=== PATIENT | female | born 1970 | race Caucasian/White ===

== ENCOUNTER 2019-01-03 19:12 | Emergency (ER) | payer OTHER ==
[2019-01-03 19:18] VITALS: BP 151/86; PULSE 66; RESP 16; TEMP 97.9
[2019-01-03] MEDS ORDERED: KETOROLAC 60 MG/2 ML VIAL IM STA (19:27)
--- NOTE | 2019-01-03 20:01 | ED ---
General Adult HPI - General Chief complaint: Extremity Injury, Upper Stated complaint: IHS Lt Arm Injury Time Seen by Provider: 01/03/19 19:25 Source: patient, RN notes reviewed, old records reviewed Mode of arrival: ambulatory Limitations: no limitations - History of Present Illness Initial comments: 48-year-old female patient no pertinent past medical history presents to ED after sustaining a slip and fall on ice. Patient reports that she was shoveling snow, when she slipped and fell onto her left arm. Patient primary complaint is left wrist pain. Patient fell on her back as well has a very mild amount of thoracic and lumbar back pain. Patient denies any trauma to head or neck. Patient denies a loss of consciousness. Patient denies any use of blood thinners. Pt denies saddle anesthesia, bowel or bladder incontinence, lower extremity weakness, paresthesias. Patient denies all other complaints. Systemic: Pt denies fatigue, myalgia, fever/chills, rash. Pt denies weakness, night sweats, weight loss. Neuro: Pt denies headache, visual disturbances, syncope or pre-syncope. HEENT: Pt denies ocular discharge or irritation, otalgia, rhinorrhea, pharyngitis or notable lymphadenopathy. Cardiopulmonary: Pt denies chest pain, SOB, heart palpitations, dyspnea on exertion. Abdominal/GI: Pt denies abdominal pain, n/v/d. : Pt denies dysuria, burning w/ urination, frequency/urgency. Denies new onset urinary or bowel incontinence. MSK: Pt denies myalgia, loss of strength or function in extremities. Neuro: Pt denies new onset weakness, paresthesias. - Related Data Previous Rx's Medication Instructions Recorded Ibuprofen [Motrin] 600 mg PO Q6HR PRN #40 day 01/03/19 Allergies Allergy/AdvReac Type Severity Reaction Status Date / Time dust Allergy Wheezing Uncoded 01/03/19 19:18 seasonal Allergy Wheezing Uncoded 01/03/19 19:18 Review of Systems ROS Statement: Those systems with pertinent positive or pertinent negative responses have been documented in the HPI. ROS Other: All systems not noted in ROS Statement are negative. Past Medical History Past Medical History: Asthma History of Any Multi-Drug Resistant Organisms: None Reported Past Surgical History: Tubal Ligation, Uterine Ablation Additional Past Surgical History / Comment(s): deviated septum. Past Psychological History: No Psychological Hx Reported Smoking Status: Former smoker Past Alcohol Use History: None Reported Past Drug Use History: None Reported General Exam - General Exam Comments Initial Comments: Constitutional: NAD, AOX3, Pt has pleasant affect. HEENT: NC/AT, trachea midline, neck supple, no lymphadenopathy. Posterior pharynx non erythematous, without exudates. External ears appear normal, without discharge. Mucous membranes moist. Eyes PERRLA, EOM intact. There is no scleral icterus. No pallor noted. Cardiopulmonary: RRR, no murmurs, rubs or gallops, no JVD noted. Lungs CTAB in anterior and posterior tapia. No peripheral edema. Abdominal exam: Abdomen soft and non-distended. Abdomen non-tender to palpation in all 4 quadrants. Bowel sounds active in LLQ. No hepatosplenomegaly. No ecchymosis Neuro: CN II-XII grossly intact. No nuchal rigidity. MSK: L dorsal aspect of wrist mildly tender to palpation midline. No snuffbox tenderness. Proximal L ulna mildly tender to palpation. No ecchymosis. Full acitve ROM of Left upper extremity. Neurovascularly intact. No cervical spinal tenderness. Mild amount of para thoracic and lumbar tenderness. 5/5 strength in lower extremities. No posterior calf tenderness bilaterally, homans sign negative bilaterally. Posterior tibialis and radial pulse +2 bilaterally. Sensation intact in upper and lower extremities. Full active ROM in upper and lower extremities. Limitations: no limitations Course Vital Signs 01/03/19 19:14 Temperature 97.9 F Pulse Rate 66 Respiratory 16 Rate Blood Pressure 151/86 O2 Sat by Pulse 100 Oximetry Medical Decision Making - Medical Decision Making 48-year-old female patient no pertinent past medical history presents to ED after sustaining a slip and fall on ice. Patient reports that she was shoveling snow, when she slipped and fell onto her left arm. Patient primary complaint is left wrist pain. Patient fell on her back as well has a very mild amount of thoracic and lumbar back pain. Patient denies any trauma to head or neck. Patient denies a loss of consciousness. Patient denies any use of blood thinners. Patient denies all other complaints. Patient will signs stable, afebrile. Physical exam displayed: L dorsal aspect of wrist mildly tender to palpation midline. No snuffbox tenderness. Proximal L ulna mildly tender to palpation. No ecchymosis. Full acitve ROM of Left upper extremity. Neurovascularly intact. No cervical spinal tenderness. Mild amount of para thoracic and lumbar tenderness. 5/5 strength in lower extremities. No posterior calf tenderness bilaterally, homans sign negative bilaterally. Posterior tibialis and radial pulse +2 bilaterally. Sensation intact in upper and lower extremities. Full active ROM in upper and lower extremities. Imaging modalities revealed no acute process and, thoracic and lumbar plain film. Left hand, left forearm. These findings were explained to patient at length, patient was understanding. Patient offered an Blaine wrap for stability left wrist , patient declined. Patient use Tylenol or Motrin for pain. Patient pain improves in ED with Toradol administration. Patient to follow up with primary care provider in 1-2 days. Patient provided orthopedic consult symptoms continue. Patient to return to ED if descends symptoms develop or condition worsens. Case discussed in depth with Dr. Farias. Disposition Clinical Impression: Fall, Sprain of wrist, left Disposition: HOME SELF-CARE Condition: Stable Instructions (If sedation given, give patient instructions): Fall Prevention ( ED), Wrist Sprain (ED) Additional Instructions: Patient to adhere to previously discussed treatment plan and will take medication(s) as directed. Patient to follow up with PCP in 1-2 days. Patient to return to ED if symptoms do not improve. Please follow-up with primary care tomorrow. Please follow up with orthopedic consult if symptoms persist or worsen. Prescriptions: Ibuprofen [Motrin] 600 mg PO Q6HR PRN #40 day PRN Reason: Pain Is patient prescribed a controlled substance at d/c from ED?: No Referrals: Fabian Plaza MD [Primary Care Provider] - 1-2 days
--- NOTE | 2019-01-03 20:32 | XR ---
EXAMINATION TYPE: XR lumbar spine 2 or 3V DATE OF EXAM: 01/03/2019 COMPARISON: 09/19/2016 HISTORY: Low back pain TECHNIQUE: 3 views FINDINGS: Lumbar vertebra have normal spacing and alignment. Posterior elements are intact. Sacroilia c joints are normal. There is no compression fracture. IMPRESSION: Negative lumbar spine exam. No change compared to old exam.
--- NOTE | 2019-01-03 20:33 | XR ---
EXAMINATION TYPE: XR hand complete LT DATE OF EXAM: 01/03/2019 COMPARISON: NONE HISTORY: Pain TECHNIQUE: 3 views FINDINGS: Metacarpals are intact. I see no fracture nor dislocation. Joint spaces are normal. There a re no erosions. IMPRESSION: Negative left hand exam.
--- NOTE | 2019-01-03 20:34 | XR ---
EXAMINATION TYPE: XR forearm LT DATE OF EXAM: 01/03/2019 COMPARISON: NONE HISTORY: Arm pain TECHNIQUE: 2 views FINDINGS: Radius and ulna appear intact. I see no fracture nor dislocation. Soft tissues appear sarah l. IMPRESSION: Negative left forearm exam.
--- NOTE | 2019-01-03 20:37 | XR ---
EXAMINATION TYPE: XR thoracic spine complete DATE OF EXAM: 01/03/2019 COMPARISON: 09/19/2016 HISTORY: Back pain TECHNIQUE: 3 views FINDINGS: Thoracic vertebra have normal alignment. Posterior elements are intact. There is no evidenc e of a compression fracture. There is hypertrophic lateral osteophyte on the left side at T8-9. IMPRESSION: Negative thoracic spine exam. No change.
== END 2019-01-03 21:30 | disposition home or self-care (01) ==
LOC: EC 19:12
DX: S63.502A Unspecified sprain of left wrist, initial encounter (principal); Z87.891 Personal history of nicotine dependence; Z91.09 Other allergy status, other than to drugs and biological substances; W00.0XXA Fall on same level due to ice and snow, initial encounter; Y93.H1 Activity, digging, shoveling and raking; Y92.69 Other specified industrial and construction area as the place of occurrence of the external cause; Y99.0 Civilian activity done for income or pay
CPT/HCPCS: 99284; 96372; 72072; 72100; 73090; 73130; J1885

== ENCOUNTER → 2019-01-06 | Outpatient (CLI) | payer BC ==
--- NOTE | 2019-01-08 09:37 | MM ---
Reason for exam: screening (asymptomatic). Last mammogram was performed 3 years and 3 months ago. History: Patient is postmenopausal and is nulliparous. Physical Findings: A clinical breast exam by your physician is recommended on an annual basis and results should be correlated with mammographic findings. MG Screening Mammo w CAD Bilateral CC and MLO view(s) were taken. Prior study comparison: October 20, 2015, mammogram, performed at [facility]. October 14, 2014, mammogram, performed at [facility]. September 10, 2013, mammogram, performed at [facility]. The breast tissue is heterogeneously dense. This may lower the sensitivity of mammography. New lateral right breast asymmetry 5cm from nipple. ASSESSMENT: Incomplete: need additional imaging evaluation, BI-RAD 0 RECOMMENDATION: Special view mammogram of the right breast. If lesion persists on supplemental views, image directed ultrasound is recommended. [facility] will attempt to contact patient to return for supplemental views and ultrasound if indicated.
== END | disposition home or self-care (01) ==
LOC: RADMAMWWP 13:06
PROVIDERS: ATTEND Family Medicine
DX: Z12.31 Encounter for screening mammogram for malignant neoplasm of breast (principal)
CPT/HCPCS: 77067

== ENCOUNTER → 2019-01-12 | Outpatient (CLI) | payer OTHER ==
--- NOTE | 2019-01-12 14:27 | XR ---
EXAMINATION TYPE: XR wrist complete LT DATE OF EXAM: 01/12/2019 COMPARISON: NONE HISTORY: Pain TECHNIQUE: Four views submitted. FINDINGS: The osseous structures are intact. The joint spaces are preserved and there is no acute fracture or dislocation. Well-corticated densities adjacent to the ulnar styloid noted. Finding likely on the ba sis of remote trauma. IMPRESSION: 1. No definite acute fracture or dislocation if symptoms persist, follow-up study in 7 to 10 days wo uld be suggested
== END | disposition home or self-care (01) ==
LOC: RADXRMAIN 13:49
PROVIDERS: ATTEND Emergency Medicine
DX: S60.212D Contusion of left wrist, subsequent encounter (principal)

== ENCOUNTER → 2019-01-26 | Outpatient (CLI) | payer BC ==
--- NOTE | 2019-01-26 10:55 | MM ---
Reason for exam: additional evaluation requested from abnormal screening. Last mammogram was performed 1 month ago. History: Patient is postmenopausal and is nulliparous. Physical Findings: Nurse did not find any significant physical abnormalities on exam. MG Work Up Mamm w CAD RT Spot compression CC and LM view(s) were taken of the right breast. Prior study comparison: January 06, 2019, bilateral MG screening mammo w CAD. October 20, 2015, mammogram, performed at [facility]. The breast tissue is extremely dense which could obscure a lesion on mammography. No significant new findings when compared with previous films. These results were verbally communicated with the patient and result sheet given to the patient on 01/26/19. ASSESSMENT: Probably benign, BI-RAD 3 RECOMMENDATION: Follow-up diagnostic mammogram of the right breast in 6 months.
== END | disposition home or self-care (01) ==
LOC: RADMAMWWP 10:21
PROVIDERS: ATTEND Family Medicine
DX: R92.8 Other abnormal and inconclusive findings on diagnostic imaging of breast (principal)
CPT/HCPCS: 77065

== ENCOUNTER → 2020-09-27 | Outpatient (CLI) | payer BC ==
--- NOTE | 2020-09-27 23:42 | MR ---
EXAMINATION TYPE: MR wrist LT wo con DATE OF EXAM: 09/27/2020 COMPARISON: None HISTORY: LT WRIST PAIN Multiplanar multiecho imaging of the left wrist was performed without contrast. There is transverse fracture across the distal radial metaphysis. Fracture line also extends to the a rticular surface at the radiocarpal joint. Fracture is 6 mm from the radiocarpal joint. There is venu a at the fracture site. The distal ulna is intact. The carpal bones are intact. There is 3 mm degenerative cyst in the lunate. Scaphoid is intact. There is a mild wrist joint effusion. I see no evidence of carpal bone fracture. The visualized metacarpal s are intact. There is no evidence of soft tissue mass. IMPRESSION: Nondisplaced transverse intra-articular fracture distal radius. Small wrist joint effusion.
== END | disposition home or self-care (01) ==
LOC: RADMRIMAIN 16:57
PROVIDERS: ATTEND Family Medicine
DX: S52.572A Other intraarticular fracture of lower end of left radius, initial encounter for closed fracture (principal)

== ENCOUNTER → 2023-11-04 | Outpatient (CLI) | payer OTHER ==
--- NOTE | 2023-11-04 20:03 | US ---
EXAMINATION TYPE: US venous doppler duplex LE DATE OF EXAM: 11/04/2023 5:10 PM COMPARISON: NONE CLINICAL INDICATION: Female, 53 years old with history of M79.604, M79.605; Fell 1 week ago; Pain in BL LE SIDE PERFORMED: Bilateral TECHNIQUE: The lower extremity deep venous system is examined utilizing real time linear array sonog marcus with graded compression, doppler sonography and color-flow sonography. VESSELS IMAGED: Common Femoral Vein Deep Femoral Vein Greater Saphenous Vein * Femoral Vein Popliteal Vein Small Saphenous Vein * Proximal Calf Veins (* superficial vessels) Imaged veins fill with normal color signal, show the expected waveforms and compressibility. No evide nce of intraluminal filling defect. Right Leg: Negative for DVT Left Leg: Negative for DVT IMPRESSION: No evidence of DVT in either lower extremity.
== END | disposition home or self-care (01) ==
LOC: RADUSWWP 16:52
PROVIDERS: ATTEND Emergency Medicine
DX: M79.604 Pain in right leg (principal); M79.605 Pain in left leg
CPT/HCPCS: 93970

== ENCOUNTER → 2023-11-04 | Outpatient (CLI) | payer OTHER ==
--- NOTE | 2023-11-04 20:08 | XR ---
EXAMINATION TYPE: XR knee limited bilateral DATE OF EXAM: 11/04/2023 5:41 PM CLINICAL INDICATION:Female, 53 years old with history of S80.01XA,S80.002XA,M79.604,M79.605; [facility]IN [facility] COMPARISON: None. TECHNIQUE: XR knee limited bilateral; examined in Frontal, lateral and oblique projections. FINDINGS: No evidence of any acute osseous pathology, soft tissue swelling, or joint effusion is no alexandre. Mild osteophyte formation involving the femoral condyles, tibial plateau and patella. Mild join t space narrowing. IMPRESSION: 1. No acute osseous pathology. 2. Mild osteoarthritic changes bilaterally.
== END | disposition home or self-care (01) ==
LOC: RADXRMAIN 17:20
PROVIDERS: ATTEND Emergency Medicine
DX: S80.02XA Contusion of left knee, initial encounter (principal); S80.01XA Contusion of right knee, initial encounter; M17.0 Bilateral primary osteoarthritis of knee

== ENCOUNTER → 2024-04-27 | Outpatient (CLI) | payer BC ==
--- NOTE | 2024-04-28 13:46 | MM ---
Reason for Exam: Screening (asymptomatic). Last mammogram was performed 5 year(s) and 3 month(s) ago. Patient History: Menarche at age 13. Patient has no children. Postmenopausal. Risk Values: Zoraida 5 year model risk: 1.2%. NCI Lifetime model risk: 8.3%. Prior Study Comparison: 10/20/2015 Screening Mammogram, [facility]. 01/06/2019 Bilateral Screening Mammogram, [facility]. 01/26/2019 Right Diagnostic Mammogram, [facility]. Tissue Density: There are scattered areas of fibroglandular density. Findings: Analyzed By CAD. Right breast: There is no suspicious group of microcalcifications or new suspicious mass. Left breast: There is no suspicious group of microcalcifications or new suspicious mass. Overall Assessment: Negative, BI-RAD 1 Management: Screening Mammogram of both breasts in [address] [facility] will attempt to contact patient to return for supplemental views and ultrasound if indicated. Patient should continue monthly self-breast exams. A clinical breast exam by your physician is recommended on an annual basis. This exam should not preclude additional follow-up of suspicious palpable abnormalities. Note on Zoraida scores and lifetime risk: 1. A Zoraida score greater than 3% is considered moderate risk. If this is the case, consider specialist referral to assess eligibility for a risk reducing agent. 2. If overall lifetime risk for the development of breast cancer is 20% or higher, the patient may qualify for future screening with alternating mammogram and breast MRI. Electronically signed and approved by: Rod Villalpando DO
== END | disposition home or self-care (01) ==
LOC: RADMAMWWP 07:47
PROVIDERS: ATTEND Family Medicine
DX: Z12.31 Encounter for screening mammogram for malignant neoplasm of breast (principal); Z78.0 Asymptomatic menopausal state
CPT/HCPCS: 77063; 77067